=== PATIENT | male | born 1955 | race Caucasian/White ===

== ENCOUNTER 2020-08-21 05:55 | Day surgery (SDC) | payer MEDICARE, OTHER ==
[2020-08-20 15:43] VITALS: BMI 27.9
[2020-08-21] MEDS ORDERED: Heparin 25,000 units/D5W 500 ML ONE (06:31)
[2020-08-21] MEDS ORDERED: Lidocaine 1% (PF) 30 ML VIAL ONE (06:31)
[2020-08-21] MEDS ORDERED: Heparin 10,000 UNITS/ 10 ML VIAL ONE (06:31)
[2020-08-21] MEDS ORDERED: Midazolam HCl 2 mg/2 ml Vial ONE (07:26)
[2020-08-21] MEDS ORDERED: Fentanyl 100 MCG/2 ML VIAL ONE (07:26)
[2020-08-21] MEDS ORDERED: Lidocaine 1% PF 5 ML VIAL ONE (07:49)
[2020-08-21] MEDS ORDERED: Ondansetron PF 4 MG/2 ML Vial ONE (07:49)
[2020-08-21] MEDS ORDERED: Dexamethasone 20 MG/5 ML VIAL ONE (07:49)
[2020-08-21] MEDS ORDERED: Glycopyrrolate 0.2 MG/ML 5 ML SYRINGE ONE (07:49)
[2020-08-21] MEDS ORDERED: PHENYLEPHRINE-NS 100 MCG/ML 10 ML SYRINGE ONE (07:49)
[2020-08-21] MEDS ORDERED: Esmolol 100 MG/10 ML VIAL ONE (07:49)
[2020-08-21] MEDS ORDERED: ePHEDrine Sulfate 50 MG/10 ML VIAL ONE (07:49)
[2020-08-21] MEDS ORDERED: PROPOFOL 200 MG/20 ML VIAL ONE (07:49)
[2020-08-21] MEDS ORDERED: Rocuronium Bromide 10 MG/ML (10ML VIAL) ONE (07:49)
[2020-08-21] MEDS ORDERED: Phenylephrine 10 MG/ML VIAL ONE (08:18)
[2020-08-21] MEDS ORDERED: Protamine Sulfate 50 MG/5 ML VIAL ONE (10:23)
== END 2020-08-21 15:50 | disposition home or self-care (01) ==
LOC: CCL 05:55
PROVIDERS: ATTEND Internal Medicine Cardiovascular Disease
PROC: B246ZZ4 Ultrasonography of Right and Left Heart, Transesophageal (ICD-10-PCS; principal; 2020-08-21)
PROC: 02583ZZ Destruction of Conduction Mechanism, Percutaneous Approach (ICD-10-PCS; 2020-08-21)
PROC: 02K83ZZ Map Conduction Mechanism, Percutaneous Approach (ICD-10-PCS; 2020-08-21)
PROC: 4A023FZ Measurement of Cardiac Rhythm, Percutaneous Approach (ICD-10-PCS; 2020-08-21)
PROC: 4A0234Z Measurement of Cardiac Electrical Activity, Percutaneous Approach (ICD-10-PCS; 2020-08-21)
DX: I48.19 Other persistent atrial fibrillation (principal); I08.0 Rheumatic disorders of both mitral and aortic valves; I11.9 Hypertensive heart disease without heart failure; Z79.01 Long term (current) use of anticoagulants; Z79.899 Other long term (current) drug therapy
CPT/HCPCS: 76942; 85347; 92960; 93005; 93312; 93613; 93622; 93655; 93656; 93657; 93662; C1732; C1759; C1894; C2630; J1100; J1644; J2001; J2250; J2370; J2405; J2704; J2720; J3010

== ENCOUNTER 2021-07-11 07:31 | Day surgery (SDC) | payer MEDICARE, OTHER ==
[2021-07-10 16:29] VITALS: BMI 27.3
[~2021-07-11 07:31] MED LIST: Fluorouracil 100 MG, Enoxaparin Sodium 25 MG, EPINEPHrine 0.3 MG in Ophthalmic Irrigati... IRR SCH
[2021-07-11] MEDS ORDERED: Cyclopentolate 1% Opth Drop 2 ML BOT ONE (08:18)
[2021-07-11] MEDS ORDERED: Phenylephrine 2.5% Ophth Soln 5 ML BOT ONE (08:18)
[2021-07-11] MEDS ORDERED: Midazolam HCl 2 mg/2 ml Vial ONE (08:54)
[2021-07-11 09:16] LABS: SARS-CoV-2 NAA Rapid Test Not Detected (NotDetected)
[2021-07-11] MEDS ORDERED: Lidocaine 1% PF 5 ML VIAL ONE ×2 (10:05)
[2021-07-11] MEDS ORDERED: PROPOFOL 200 MG/20 ML VIAL ONE (10:05)
[2021-07-11] MEDS ORDERED: Maxitrol 0.1% Opth Oint 3.5 GM TUBE ONE (10:05)
[2021-07-11] MEDS ORDERED: Bupivacaine 0.75% 10 ML VIAL ONE (10:05)
[2021-07-11] MEDS ORDERED: Lidocaine 4% PF 5 ML AMP ONE (10:05)
[2021-07-11] MEDS ORDERED: Enoxaparin Sodium 30 MG/0.3 ML SYRINGE ONE (10:05)
[2021-07-11] MEDS ORDERED: Triamcinolone 40 MG/ML VIAL ONE (10:05)
[2021-07-11] MEDS ORDERED: CEFAZOLIN 1 GM VIAL ONE (10:05)
== END 2021-07-11 12:15 | disposition home or self-care (01) ==
LOC: SDC 07:31
PROVIDERS: ATTEND Ophthalmology Retina Specialist
PROC: 08T53ZZ Resection of Left Vitreous, Percutaneous Approach (ICD-10-PCS; principal; 2021-07-11)
DX: H33.012 Retinal detachment with single break, left eye (principal); Z20.822 Contact with and (suspected) exposure to COVID-19; Z79.899 Other long term (current) drug therapy; Z91.038 Other insect allergy status
CPT/HCPCS: 67025; 67108; U0002; J0171; J0690; J1650; J2250; J2704; J3301; J3490; J9190